=== PATIENT | female | born 1950 | race Caucasian/White ===

== ENCOUNTER 2016-12-25 17:54 | Emergency (ER) | payer MEDICARE ==
[~2016-12-25] VITALS: Ht 172.7 cm; Wt 109.5 kg
[2016-12-25] MEDS ORDERED: LEVO137T2 PO (18:18)
[2016-12-25] MEDS ORDERED: GABA-283 PO (18:18)
[2016-12-25] MEDS ORDERED: LANO1TAB23 PO (18:18)
[2016-12-25] MEDS ORDERED: ABIL1TAB11 PO (18:18)
[2016-12-25] MEDS ORDERED: LISI10TA2 PO (18:18)
[2016-12-25] MEDS ORDERED: FLUO20CA8 PO (18:18)
[2016-12-25] MEDS ORDERED: BUPR150T5 PO (18:18)
[2016-12-25 18:40] VITALS: BP 140/64
[2016-12-25] MEDS: NITROGLYCERIN 0.4 MG SUBL TABLET SL PRN ×2 (18:40→19:05)
[2016-12-25] MEDS ORDERED: ASPIRIN 81 MG CHEW TABLET PO ONE (18:45)
[2016-12-25 19:44] LABS: BASO % 0.2 % (0.0-1.0); EOS # 0.1 10^3/uL (0.0-0.50); EOS % 0.9 % (0.0-3.0); IMMATURE GRANULOCYTE % 0.3 % (0-0); LYMPH # 1.1 10^3/uL (1.5-4.5); LYMPH % 8.4 % (24.0-44.0); MEAN CORPUSCULAR HEMOGLOBIN 28.1 pg (27.0-33.0); MEAN CORPUSCULAR HGB CONC 32.8 g/dl (32.0-36.5); MEAN CORPUSCULAR VOLUME 85.7 fl (80.0-96.0); MONO # 0.5 10^3/uL (0.0-0.8); MONO % 3.9 % (0.0-5.0); NEUTROPHILS # 10.8 10^3/uL (1.8-7.7); NEUTROPHILS % 86.3 % (36.0-66.0); PLATELET COUNT, AUTOMATED 234 10^3/uL (150-450); RED CELL DISTRIBUTION WIDTH 13.2 % (11.5-14.5); WHITE BLOOD COUNT 12.6 10^3/uL (4.0-10.0)
[2016-12-25] MEDS ORDERED: GI COCKTAIL 50ML BTL(HYOSCYAMINE/MAALOX/LIDOCAINE VISCOUS)(1:3:1) PO ONE (19:45)
[2016-12-25 19:49] LABS: ADD MORPHOLOGY? YES; PLT CLUMPS? POS FLAG; POS COUNT POS FLAG
[2016-12-25 19:56] LABS: INR 0.93
[2016-12-25 20:13] LABS: ALBUMIN 3.6 GM/DL (3.2-5.2); ALBUMIN/GLOBULIN RATIO 1.13 (1.00-1.93); ALKALINE PHOSPHATASE 56 U/L (45-117); ALT/SGPT 20 U/L (12-78); ANION GAP 10 MEQ/L (8-16); AST/SGOT 13 U/L (15-37); BILIRUBIN,DIRECT 0.1 MG/DL (0.0-0.2); BILIRUBIN,TOTAL 0.6 MG/DL (0.2-1.0); BLOOD UREA NITROGEN 21 MG/DL (7-18); CALCIUM LEVEL 8.6 MG/DL (8.8-10.2); CARBON DIOXIDE LEVEL 26 MEQ/L (21-32); CHLORIDE LEVEL 104 MEQ/L (98-107); CREATININE FOR GFR 1.34 MG/DL (0.55-1.02); GLOMERULAR FILTRATION RATE 41.9 (>45); GLUCOSE, FASTING 129 MG/DL (80-110); POTASSIUM SERUM 4.3 MEQ/L (3.5-5.1); SODIUM LEVEL 140 MEQ/L (136-145); TOTAL PROTEIN 6.8 GM/DL (6.4-8.2)
[2016-12-25] MEDS ORDERED: ISOVUE-370 76% 100ML VIAL (Q9967) As Ordered ONE (20:29)
[2016-12-25 20:54] LABS: DIGOXIN LEVEL 1.6 NG/ML (0.5-2.0)
--- NOTE | 2016-12-25 21:10 | REPUSA ---
HISTORY: UPPER ABD PAIN. TECHNIQUE: Axial CT imaging of abdomen and pelvis with coronal and sagittal reformatted imaging, with out contrast. DLP= 1686.6 mGy-cm. FINDINGS: Lung bases are clear. Heart is not enlarged. Bone windows demonstrate degenerative bony c hanges with no acute fracture or destructive bony lesion seen. The liver is enlarged. No focal liver mass is seen. Spleen is normal. No ascites is seen. Biliary tree is normal in patients status post post cholecystectomy. Pancreas is normal. Adrenal glands ar e normal. Both kidneys function without evidence of calculus, mass lesion, or obstruction. Ureters and urinary bladder are normal. Abdominal aorta, and retroperitoneal structures are normal. No pelvic mass les ions are seen. There is a tiny amount of free peritoneal fluid in the dependent pelvis, probably phy siological. There is fluid distention and dilatation of loops of mid small bowel with air-fluid levels with maxim um diameter measuring 3.8 cm consistent with nonspecific ileus and enteritis. Colon is normal. Ther e is no evidence of bowel wall mass lesion, obstruction, perforation, inflammatory reaction, or evide nce of diverticulitis. No abdominal hernia is seen. IMPRESSION: 1. Abnormal fluid filled distention of loops of mid small bowel with air-fluid levels co nsistent with nonspecific ileus and enteritis. The remainder of the bowel is normal with no evidence of bowel obstruction, perforation, or walled off abscess seen. 2. Hepatomegaly. 3. No other pathologic mass seen in the abdomen and pelvis.
--- NOTE | 2016-12-25 21:30 | REPUSA ---
HISTORY: CHEST PAIN. TECHNIQUE: CTA protocol for PE with axial CT imaging of chest, with sagittal and coronal reformatted imaging with intravenous contrast enhancement. DLP= 1686.6 mGy-cm. FINDINGS: Thoracic aorta is normal with no evidence of aneurysm or dissection. Pulmonary arteries are well opacified with contrast with no evidence of pulmonary embolism. No vascul ar abnormality is seen in the mediastinum or clarisse. Mediastinal windows demonstrate no mediastinal pathologically enlarged lymph nodes, mass lesions, or abnormal mediastinal fluid collection seen. The heart is borderline enlarged. Lung windows demonstrate a tiny 3 mm noncalcified nodule in the right upper lobe seen on image 50. N o other pulmonary mass, pulmonary consolidation, pneumothorax, or pleural effusion is seen. Bone win dows demonstrate no detectable evidence of bone fracture or destructive bony lesion in the chest. No chest wall abnormality is seen. There is distention of loops of mid small bowel with air-fluid level s suggesting mild nonspecific ileus/enteritis. IMPRESSION: 1. No evidence of pulmonary embolism or thoracic aortic aneurysm or dissection. 2. Borderline cardiomegaly. 3. 3 mm noncalcified nodule noted in the right upper lobe. No other pulmonary mass, consolidation, pneumothorax, or pleural effusion seen. 4. Fluid-filled distention of loops of small bowel in the upper abdomen suggesting mild nonspecific ileus/enteritis. Clinical correlation and followup imaging may be warranted as clinically indicated.
[2016-12-26 01:10] VITALS: BP 130/59
--- NOTE | 2016-12-26 07:44 | REP ---
The lung yarbrough are clear. The cardiac size is normal The calrisse, mediastinum, and bony thorax are unremarkable. Impression: Negative PA and lateral chest. The Signed by Rolan Lizarraga MD 12/26/2016 07:36 A
--- NOTE | 2016-12-26 21:02 | ECGEPIP ---
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
--- NOTE | 2016-12-26 21:05 | ECGEPIP ---
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
== END 2016-12-26 01:50 | disposition home or self-care (01) ==
LOC: M ED 17:54
DX: R91.1 Solitary pulmonary nodule (principal); R07.89 Other chest pain; R94.31 Abnormal electrocardiogram [ECG] [EKG]; R16.0 Hepatomegaly, not elsewhere classified; F32.9 Major depressive disorder, single episode, unspecified; I10 Essential (primary) hypertension; R00.0 Tachycardia, unspecified; I71.4 Abdominal aortic aneurysm, without rupture; Z82.49 Family history of ischemic heart disease and other diseases of the circulatory system; Z79.899 Other long term (current) drug therapy; Z88.2 Allergy status to sulfonamides
CPT/HCPCS: 71020; 71275; 74177; 80048; 80076; 80162; 82550; 82553; 83690; 84484; 85025; 85610; 85730; 93005; 93041; 94760; 99285; Q9967